=== PATIENT | female | born 1930 | race Caucasian/White ===

== ENCOUNTER 2017-03-19 12:59 | Emergency (ER) | payer OTHER ==
[~2017-03-19 12:59] MED LIST: ASPIRIN EC325 MG PO; ATACAND8 MG PO; ATORVASTATIN CA20 MG PO; BECLOMETHASONE; COLACE100 MG PO; DONEPEZIL HCL10 M1 PO; DULCOLAX10 MG PR; ENALAPRIL MALEA10 MG PO; EQL OMEPRAZOLE20 MG PO; HYDREA500 MG PO; LEVAQUIN250 MG PO; METOPROLOL SUCC50 MG PO; NITROSTAT0.4 MG SL; OXYCODONE/ACETA1 TA1 PO; PRILOSEC20 MG PO; SENNA-LAX8.6 MG PO; VICODIN EQUIVAL1 TAB PO; VITAMIN B 650 MG PO; VITAMIN B COMPLE1 PO; VITAMIN C500 M1 PO; VITAMIN D-32000 UNIT PO; XARELTO10 MG PO
--- NOTE | 2017-03-19 16:20 | ED NURSING NOTES ---
Clinical Report - Nurses [facility] [address] [place] [address] 03/19/2017 13:02 Patient: SUSANA MURRY TRIAGE Triage time 1302 PM. Acuity: LEVEL 3. Chief Complaint: CHILLS (confusion). Alert. No acute distress. FERDINAND COMA SCORE: [place] Coma Scale: 15- eyes open spontaneously (4); best verbal response- oriented x 4 (5); best motor response- obeys commands (6). --13:28 Dana Hernandez R.N. 13:13 03/19/17. BP: 157/71 taken on the left arm, via an automated monitor, while lying. HR: 68. RR: 16. O2 saturation: 99%. Temp: 98 F (oral). Pain level now: 0/10. --13:28 Dana Hernandez R.N. Weight: 74.8 kg measured. Height/Length: 68 inches Per Patient. BMI: 25.1. --13:16 Dana Hernandez R.N. Medications Atorvastatin Calcium Oral 20 mg, daily. Enalapril Maleate Oral 10 mg, daily. Hydroxyurea Oral 500 mg 3x per week. Metoprolol Succinate ER Oral 50 mg BID. --13:15 Dana Hernandez R.N. Nitrostat Sublingual 0.4 mg, as needed. Omeprazole Oral 20 mg, daily. Vitamin D Oral (Capsule 2000 unit) 1 capsule, daily. --13:15 Dana Hernandez R.N. Aspirin Oral. --13:15 Dana Hernandez R.N. Medication/allergy information source: the patient and patient's family. --13:28 Dana Hernandez R.N. Allergies No Known Drug Allergy. --13:13 Dana Hernandez R.N. History Arrived by private vehicle. Historian: family. Accompanied by family. Primary physician (Dr. Pisano). ( Pt is here to get further evaluation for confusion, and possibly UTI, daughter states took her to her primary doctor on Saturday due to noticing mom being confused, SOB, swelling b/l. Daughter is concern about mom's mental state in general). This is a new problem. Symptoms are constant and still present (2-3 weeks). She has had fever and weakness. No cough, difficulty breathing or skin rash. Denies muscle aches. 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 PAST MEDICAL HX: Immunizations: up-to-date. The patient is post-menopausal. SOCIAL HX: Never smoker. Alcohol use; consumes wine by the glass. (1 week). No drug use. No infectious disease exposure. ABUSE ASSESSMENT: No report of abuse. SELF HARM ASSESSMENT: A self harm assessment was performed. The patient answered "no" to the question "Do you have thoughts of harming or killing yourself?" and "Have you recently had thoughts about harming or killing others?". FALL RISK ASSESSMENT: Fall risk assessment completed. No fall risk identified. NUTRITIONAL RISK ASSESSMENT: The nutritional risk assessment revealed no deficiencies. FUNCTIONAL ASSESSMENT: Functional assessment: no impairments noted. LEARNING NEEDS ASSESSMENT: The learning needs assessment revealed no barriers. SKIN INTEGRITY ASSESSMENT: Skin integrity risk assessment completed. No skin integrity risk identified. --13:28 Dana Hernandez R.N. PROBLEMS: Contusion. Fall. Pelvic Fracture. TIA's with speech problems. Coronary Artery Disease. Hypovolemia. Leukocytosis. Dyspnea. UTI - Urinary Tract Infection. Primary (Essential) Thrombocytosis. Bleeding Disorder. Myocardial Infarction. Heart Disease. Vertigo. Immunizations. Angina. Atrial Fibrillation. Insomnia. Hypertension. Anxiety Reaction. Syncope. Epistaxis. Thrombocytosis. --13:16 Dana Hernandez R.N. ADDITIONAL SURGERIES: Cardiac Procedures. Cardiac stents. Coronary Angioplasty. Hysterectomy. Left arm. Right foot fracture repair . --13:16 Dana Hernandez R.N. Interventions ID band on patient. --13:28 Dana Hernandez R.N. PHYSICAL ASSESSMENT To room via wheelchair. GENERAL / NEURO / PSYCH: Alert. Oriented X 4. The patient is disoriented to person and place. She has had weakness. HEENT: Pupils equal, round and reactive to light. No facial asymmetry noted. Mucous membranes are pink. RESPIRATORY: Respirations not labored. Chest nontender. Breath sounds within normal limits. CVS: Capillary refill less than 2 seconds. Pulses within normal limits. GI / : Abdomen soft and nontender and normal bowel sounds. EXTREMITIES: Bilateral 2+ non-pitting edema of the lower extremities. SKIN: Skin is warm and dry. Well-demarcated, macular, raised skin rash located on the face (nose and lips noted). Poor skin turgor. --13:31 Dana Hernandez R.N. NURSING PROGRESS NOTES Cardiac rhythm: normal sinus rhythm. The initial plan of care for this patient has been created This plan of care was discussed with the patient and family. Monitoring of patient in place. Reassurance given. Two patient identifiers checked. Call light placed in reach. Side rails up x 1. Bed placed in lowest position. --13:33 Dana Hernandez R.N. 13:31 03/19/17. BP: 150/62 (regular adult cuff) taken on the left arm, via an automated monitor, while lying. HR: 71. RR: 16. O2 saturation: 97% on room air. Pain level now: 0/10. --13:33 Dana Hernandez R.N. EKG time: (1343). EKG was ordered, performed by a lynnette and shown to the ED physician. --13:45 Jose David Schroeder ER Tech1 13:15 03/19/2017 Site #1 started via IV in the right forearm with an 20g angiocath; one attempt. Blood drawn: rainbow set. Labeled in the presence of the patient and sent to the lab. --13:59 Dana Hernandez R.N. 13:59 03/19/2017 Started bag #1 500 mL IV Fluids IV NS (Saline); at 500 mL/hr over 1 hour(s) via site #1 via IV pump. Allergies verified and confirmed 5 rights. IV patency established. IV site checked: no pain, redness, or swelling. IV flushed thoroughly pre- and post-medication administration. --13:59 Dana Hernandez R.N. Finger stick glucose: 131 mg/dL; performed by nurse; result shown to the ED physician. --14:00 Ephraim Tracy R.N. Cardiac rhythm: normal sinus rhythm. educator senior clinical, pulse oximeter and NIBP monitor placed on patient. Patient ID band checked for patient name, birthdate and medical record number: family confirmed. Catheterized urine collected with return of yellow-colored clear urine; sample sent to lab for urinalysis. Specimen labeled in the presence of the patient. The patient is calm and resting quietly. GENERAL / NEURO / PSYCH: Denies headache or anxiety. RESPIRATORY: Denies difficulty breathing. CVS: Denies chest pain. GI / : Denies nausea. Call light placed in reach. --14:16 Dana Hernandez R.N. 14:00 03/19/17. BP: 127/54 (regular adult cuff) taken on the left arm, via an automated monitor, while lying. HR: 66. RR: 19. O2 saturation: 96% on room air. Pain level now: 0/10. --14:16 Dana Hernandez R.N. 15:50 03/19/2017 Site #1; patent, infusing well and no signs of infection or infiltration. --15:50 Dana Hernandez R.N. Cardiac rhythm: normal sinus rhythm. educator senior clinical, pulse oximeter and NIBP monitor placed on patient. Reassurance given. Reassessment after fluids administered. She is calm and resting quietly. Overall patient status is the same- she states feels the same. Call light placed in reach. Side rails up. --15:50 Dana Hernandez R.N. 15:00 03/19/17. BP: 144/72. HR: 81. RR: 22. O2 saturation: 96% on room air. Temp: 98.1 F (oral). Pain level now: 0/10. --15:50 Dana Hernandez R.N. late entry - 14:00. Cardiac rhythm: normal sinus rhythm. educator senior clinical, pulse oximeter and NIBP monitor placed on patient. The patient is calm and resting quietly. Overall patient status is the same- she states feels the same. GENERAL / NEURO / PSYCH: Denies headache or anxiety. RESPIRATORY: Denies difficulty breathing. CVS: Denies chest pain. Normal sinus rhythm noted. GI / : Denies nausea. SKIN: Skin is warm and dry. Skin color within normal limits. Call light placed in reach. Side rails up x 1. Bed placed in lowest position. Brakes of bed on. --15:51 Dana Hernandez R.N. 14:00 03/19/17. BP: 127/54 (regular adult cuff) taken on the left arm, via an automated monitor, while lying. HR: 71. RR: 19. O2 saturation: 98% on room air. Pain level now: 0/10. --15:51 Dana Hernandez R.N. ( Discharge planning at bedside, discussing options with family). --15:52 Dana Hernandez R.N. ( Care set up thru social services manager at the [facility]). --17:05 Dana Hernandez R.N. DISPOSITION / DISCHARGE 14:30 03/19/2017 IV Fluids IV NS via IV site #1 Rate Changed: bag #1 decreased to 500 mL/hr via IV pump. IV patency established. IV site checked: no pain, redness, or swelling. IV flushed thoroughly. Confirmed 5 Rights. --17:02 Dana Hernandez R.N. 16:53 03/19/2017 IV Fluids IV NS Discontinued: bag #1 completed upon discharge. Total amount infused: 1000 mL. IV patency established. IV site checked: no pain, redness, or swelling. IV flushed thoroughly. --17:03 Dana Hernandez R.N. 16:57 03/19/2017 Site #1 removed upon discharge. Catheter intact. Manual pressure, pressure dressing, bandaid and bandage applied. --17:02 Dana Hernandez R.N. Cardiac rhythm: normal sinus rhythm. Departure time: 1704 PM. Condition at departure: unchanged and stable. The goals identified in the patient's plan of care were met. No learning barriers present. Ability to learn limited by poor comprehension and dementia; teaching performed with the family. Discharge instructions provided and reviewed with the family. Patient verbalized understanding. Written instructions provided in Nauruan. No warning instructions, medication instructions, treatment instructions, referrals given to the patient or activity restrictions. No note given. The patient was discharged by the physician. She was discharged to the retirement and accompanied by family. She left the Emergency Department ambulatory and via private vehicle. Family member driving. FALL RISK ASSESSMENT: Fall risk assessment completed. No fall risk identified. FERDINAND COMA SCORE: [place] Coma Scale: 4- eyes open spontaneously (4). --17:04 Dana Hernandez R.N. 17:00 03/19/17. BP: 161/75. HR: 70. RR: 15. O2 saturation: 98% on room air. Temp: 98.2 F (oral). Pain level now: 0/10. --17:04 Dana Hernandez R.N. Locked/Released at 03/19/2017 17:05 by Dana Hernandez R.N.
--- NOTE | 2017-03-19 16:20 | ED ORDER SUMMARY ---
..... Patient: SUSANA MURRY OrderSheet [facility] VisitID: [id number] [place] [address] 86y, F Registration Date/Time: 03/19/2017 ORDER SHEET Weight: 74.8 kg (measured) Allergies: No Known Drug Allergy GENERAL ORDERS: Banjo Repairer (Continuous) (13:03/19/2017 [facility]) (Ack 13:31 LNations ER Tech1) (13:32 EHassan R.N.) UA-Culture if indicated Urgent (13:03/19/2017 [facility]) (Ack 13:31 LNations ER Tech1) (13:51 EHassan R.N.) Cardiac Panel Stat (13:03/19/2017 [facility]) (Ack 13:32 LNations ER Tech1) (13:32 EHassan R.N.) BNP Urgent (13:03/19/2017 [facility]) (Ack 13:32 LNations ER Tech1) (13:32 EHassan R.N.) Amylase Urgent (13:03/19/2017 [facility]) (Ack 13:32 LNations ER Tech1) (13:33 EHassan R.N.) PT with INR Urgent (13:03/19/2017 [facility]) (Ack 13:32 LNations ER Tech1) (13:33 EHassan R.N.) TSH Urgent (13:03/19/2017 [facility]) (Ack 13:32 LNations ER Tech1) (13:33 EHassan R.N.) Urine Drug Screen Urgent (13:03/19/2017 [facility]) (Ack 13:32 LNations ER Tech1) (Collected 13:33 EHassan R.N.) (Sent 13:33 EHassan R.N.) (13:51 EHassan R.N.) Pulse oximeter (13:03/19/2017 [facility]) (Ack 13:31 LNations ER Tech1) (13:32 EHassan R.N.) EKG - ER Stat (13:29 03/19/2017 [facility]) (Ack 13:31 LNations ER Tech1) (13:43 PWeiler ER Tech1) Vitals (13:29 03/19/2017 [facility]) (Ack 13:31 LNations ER Tech1) (13:32 EHassan R.N.) POC Glucose (13:29 03/19/2017 [facility]) (Ack 13:31 LNations ER Tech1) (13:58 EHassan R.N.) Old Records (from [facility]) (13:43 03/19/2017 [facility]) (Ack 13:49 LNations ER Tech1) (13:52 LNations ER Tech1) Consult - Layboy Operator (d/c conservation planner) (14:29 03/19/2017 [facility]) (14:46 LNations ER Tech1) MEDICATION ORDERS: IV FLUIDS: IV NS : initial bolus 500 mL (1000 mL/hr), then 250 mL/hr for X2 (NOW) (13:29 03/19/2017 [facility]) (13:59 EHassan R.N.) ORDER SHEET NOTES: [Electronically signed by Dana Hernandez R.N. (17:05 03/19/2017)] [Electronically signed by Jose David Del Cid DO (23:13 03/19/2017)] [Electronically locked/signed by Dana Hernandez R.N. (17:05 03/19/2017)]
--- NOTE | 2017-03-19 16:20 | ED NURSING NOTES ---
Clinical Report - Nurses [facility] [address] [place] [address] 03/19/2017 13:02 Patient: SUSANA MURRY TRIAGE Triage time 1302 PM. Acuity: LEVEL 3. Chief Complaint: CHILLS (confusion). Alert. No acute distress. FERDINAND COMA SCORE: [place] Coma Scale: 15- eyes open spontaneously (4); best verbal response- oriented x 4 (5); best motor response- obeys commands (6). --13:28 Dana Hernandez R.N. 13:13 03/19/17. BP: 157/71 taken on the left arm, via an automated monitor, while lying. HR: 68. RR: 16. O2 saturation: 99%. Temp: 98 F (oral). Pain level now: 0/10. --13:28 Dana Hernandez R.N. Weight: 74.8 kg measured. Height/Length: 68 inches Per Patient. BMI: 25.1. --13:16 Dana Hernandez R.N. Medications Atorvastatin Calcium Oral 20 mg, daily. Enalapril Maleate Oral 10 mg, daily. Hydroxyurea Oral 500 mg 3x per week. Metoprolol Succinate ER Oral 50 mg BID. --13:15 Dana Hernandez R.N. Nitrostat Sublingual 0.4 mg, as needed. Omeprazole Oral 20 mg, daily. Vitamin D Oral (Capsule 2000 unit) 1 capsule, daily. --13:15 Dana Hernandez R.N. Aspirin Oral. --13:15 Dana Hernandez R.N. Medication/allergy information source: the patient and patient's family. --13:28 Dana Hernandez R.N. Allergies No Known Drug Allergy. --13:13 Dana Hernandez R.N. History Arrived by private vehicle. Historian: family. Accompanied by family. Primary physician (Dr. Pisano). ( Pt is here to get further evaluation for confusion, and possibly UTI, daughter states took her to her primary doctor on Saturday due to noticing mom being confused, SOB, swelling b/l. Daughter is concern about mom's mental state in general). This is a new problem. Symptoms are constant and still present (2-3 weeks). She has had fever and weakness. No cough, difficulty breathing or skin rash. Denies muscle aches. 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 PAST MEDICAL HX: Immunizations: up-to-date. The patient is post-menopausal. SOCIAL HX: Never smoker. Alcohol use; consumes wine by the glass. (1 week). No drug use. No infectious disease exposure. ABUSE ASSESSMENT: No report of abuse. SELF HARM ASSESSMENT: A self harm assessment was performed. The patient answered "no" to the question "Do you have thoughts of harming or killing yourself?" and "Have you recently had thoughts about harming or killing others?". FALL RISK ASSESSMENT: Fall risk assessment completed. No fall risk identified. NUTRITIONAL RISK ASSESSMENT: The nutritional risk assessment revealed no deficiencies. FUNCTIONAL ASSESSMENT: Functional assessment: no impairments noted. LEARNING NEEDS ASSESSMENT: The learning needs assessment revealed no barriers. SKIN INTEGRITY ASSESSMENT: Skin integrity risk assessment completed. No skin integrity risk identified. --13:28 Dana Hernandez R.N. PROBLEMS: Contusion. Fall. Pelvic Fracture. TIA's with speech problems. Coronary Artery Disease. Hypovolemia. Leukocytosis. Dyspnea. UTI - Urinary Tract Infection. Primary (Essential) Thrombocytosis. Bleeding Disorder. Myocardial Infarction. Heart Disease. Vertigo. Immunizations. Angina. Atrial Fibrillation. Insomnia. Hypertension. Anxiety Reaction. Syncope. Epistaxis. Thrombocytosis. --13:16 Dana Hernandez R.N. ADDITIONAL SURGERIES: Cardiac Procedures. Cardiac stents. Coronary Angioplasty. Hysterectomy. Left arm. Right foot fracture repair . --13:16 Dana Hernandez R.N. Interventions ID band on patient. --13:28 Dana Hernandez R.N. PHYSICAL ASSESSMENT To room via wheelchair. GENERAL / NEURO / PSYCH: Alert. Oriented X 4. The patient is disoriented to person and place. She has had weakness. HEENT: Pupils equal, round and reactive to light. No facial asymmetry noted. Mucous membranes are pink. RESPIRATORY: Respirations not labored. Chest nontender. Breath sounds within normal limits. CVS: Capillary refill less than 2 seconds. Pulses within normal limits. GI / : Abdomen soft and nontender and normal bowel sounds. EXTREMITIES: Bilateral 2+ non-pitting edema of the lower extremities. SKIN: Skin is warm and dry. Well-demarcated, macular, raised skin rash located on the face (nose and lips noted). Poor skin turgor. --13:31 Dana Hernandez R.N. NURSING PROGRESS NOTES Cardiac rhythm: normal sinus rhythm. The initial plan of care for this patient has been created This plan of care was discussed with the patient and family. Monitoring of patient in place. Reassurance given. Two patient identifiers checked. Call light placed in reach. Side rails up x 1. Bed placed in lowest position. --13:33 Dana Hernandez R.N. 13:31 03/19/17. BP: 150/62 (regular adult cuff) taken on the left arm, via an automated monitor, while lying. HR: 71. RR: 16. O2 saturation: 97% on room air. Pain level now: 0/10. --13:33 Dana Hernandez R.N. EKG time: (1343). EKG was ordered, performed by a lynnette and shown to the ED physician. --13:45 Jose David Schroeder ER Tech1 13:15 03/19/2017 Site #1 started via IV in the right forearm with an 20g angiocath; one attempt. Blood drawn: rainbow set. Labeled in the presence of the patient and sent to the lab. --13:59 Dana Hernandez R.N. 13:59 03/19/2017 Started bag #1 500 mL IV Fluids IV NS (Saline); at 500 mL/hr over 1 hour(s) via site #1 via IV pump. Allergies verified and confirmed 5 rights. IV patency established. IV site checked: no pain, redness, or swelling. IV flushed thoroughly pre- and post-medication administration. --13:59 Dana Hernandez R.N. Finger stick glucose: 131 mg/dL; performed by nurse; result shown to the ED physician. --14:00 Ephraim Tracy R.N. Cardiac rhythm: normal sinus rhythm. clamp operator, pulse oximeter and NIBP monitor placed on patient. Patient ID band checked for patient name, birthdate and medical record number: family confirmed. Catheterized urine collected with return of yellow-colored clear urine; sample sent to lab for urinalysis. Specimen labeled in the presence of the patient. The patient is calm and resting quietly. GENERAL / NEURO / PSYCH: Denies headache or anxiety. RESPIRATORY: Denies difficulty breathing. CVS: Denies chest pain. GI / : Denies nausea. Call light placed in reach. --14:16 Dana Hernandez R.N. 14:00 03/19/17. BP: 127/54 (regular adult cuff) taken on the left arm, via an automated monitor, while lying. HR: 66. RR: 19. O2 saturation: 96% on room air. Pain level now: 0/10. --14:16 Dana Hernandez R.N. 15:50 03/19/2017 Site #1; patent, infusing well and no signs of infection or infiltration. --15:50 Dana Hernandez R.N. Cardiac rhythm: normal sinus rhythm. clamp operator, pulse oximeter and NIBP monitor placed on patient. Reassurance given. Reassessment after fluids administered. She is calm and resting quietly. Overall patient status is the same- she states feels the same. Call light placed in reach. Side rails up. --15:50 Dana Hernandez R.N. 15:00 03/19/17. BP: 144/72. HR: 81. RR: 22. O2 saturation: 96% on room air. Temp: 98.1 F (oral). Pain level now: 0/10. --15:50 Dana Hernandez R.N. late entry - 14:00. Cardiac rhythm: normal sinus rhythm. clamp operator, pulse oximeter and NIBP monitor placed on patient. The patient is calm and resting quietly. Overall patient status is the same- she states feels the same. GENERAL / NEURO / PSYCH: Denies headache or anxiety. RESPIRATORY: Denies difficulty breathing. CVS: Denies chest pain. Normal sinus rhythm noted. GI / : Denies nausea. SKIN: Skin is warm and dry. Skin color within normal limits. Call light placed in reach. Side rails up x 1. Bed placed in lowest position. Brakes of bed on. --15:51 Dana Hernandez R.N. 14:00 03/19/17. BP: 127/54 (regular adult cuff) taken on the left arm, via an automated monitor, while lying. HR: 71. RR: 19. O2 saturation: 98% on room air. Pain level now: 0/10. --15:51 Dana Hernandez R.N. ( Discharge planning at bedside, discussing options with family). --15:52 Dana Hernandez R.N. ( Care set up thru social insurance adviser at the [facility]). --17:05 Dana Hernandez R.N. DISPOSITION / DISCHARGE 14:30 03/19/2017 IV Fluids IV NS via IV site #1 Rate Changed: bag #1 decreased to 500 mL/hr via IV pump. IV patency established. IV site checked: no pain, redness, or swelling. IV flushed thoroughly. Confirmed 5 Rights. --17:02 Dana Hernandez R.N. 16:53 03/19/2017 IV Fluids IV NS Discontinued: bag #1 completed upon discharge. Total amount infused: 1000 mL. IV patency established. IV site checked: no pain, redness, or swelling. IV flushed thoroughly. --17:03 Dana Hernandez R.N. 16:57 03/19/2017 Site #1 removed upon discharge. Catheter intact. Manual pressure, pressure dressing, bandaid and bandage applied. --17:02 Dana Hernandez R.N. Cardiac rhythm: normal sinus rhythm. Departure time: 1704 PM. Condition at departure: unchanged and stable. The goals identified in the patient's plan of care were met. No learning barriers present. Ability to learn limited by poor comprehension and dementia; teaching performed with the family. Discharge instructions provided and reviewed with the family. Patient verbalized understanding. Written instructions provided in Bruneian. No warning instructions, medication instructions, treatment instructions, referrals given to the patient or activity restrictions. No note given. The patient was discharged by the physician. She was discharged to the [facility] and accompanied by family. She left the Emergency Department ambulatory and via private vehicle. Family member driving. FALL RISK ASSESSMENT: Fall risk assessment completed. No fall risk identified. FERDINAND COMA SCORE: [place] Coma Scale: 4- eyes open spontaneously (4). --17:04 Dana Hernandez R.N. 17:00 03/19/17. BP: 161/75. HR: 70. RR: 15. O2 saturation: 98% on room air. Temp: 98.2 F (oral). Pain level now: 0/10. --17:04 Dana Hernandez R.N. Locked/Released at 03/19/2017 17:05 by Dana Hernandez R.N.
--- NOTE | 2017-03-19 16:20 | ED ORDER SUMMARY ---
..... Patient: SUSANA MURRY [facility] VisitID: [id number] [place] [address] 86y, F Registration Date/Time: 03/19/2017 ORDER SHEET Weight: 74.8 kg (measured) Allergies: No Known Drug Allergy GENERAL ORDERS: Toe Sewer (Continuous) (13:03/19/2017 [facility]) (Ack 13:31 LNations ER Tech1) (13:32 EHassan R.N.) UA-Culture if indicated Urgent (13:03/19/2017 [facility]) (Ack 13:31 LNations ER Tech1) (13:51 EHassan R.N.) Cardiac Panel Stat (13:03/19/2017 [facility]) (Ack 13:32 LNations ER Tech1) (13:32 EHassan R.N.) BNP Urgent (13:03/19/2017 [facility]) (Ack 13:32 LNations ER Tech1) (13:32 EHassan R.N.) Amylase Urgent (13:03/19/2017 [facility]) (Ack 13:32 LNations ER Tech1) (13:33 EHassan R.N.) PT with INR Urgent (13:03/19/2017 [facility]) (Ack 13:32 LNations ER Tech1) (13:33 EHassan R.N.) TSH Urgent (13:03/19/2017 [facility]) (Ack 13:32 LNations ER Tech1) (13:33 EHassan R.N.) Urine Drug Screen Urgent (13:03/19/2017 [facility]) (Ack 13:32 LNations ER Tech1) (Collected 13:33 EHassan R.N.) (Sent 13:33 EHassan R.N.) (13:51 EHassan R.N.) Pulse oximeter (13:03/19/2017 [facility]) (Ack 13:31 LNations ER Tech1) (13:32 EHassan R.N.) EKG - ER Stat (13:29 03/19/2017 [facility]) (Ack 13:31 LNations ER Tech1) (13:43 PWeiler ER Tech1) Vitals (13:29 03/19/2017 [facility]) (Ack 13:31 LNations ER Tech1) (13:32 EHassan R.N.) POC Glucose (13:29 03/19/2017 [facility]) (Ack 13:31 LNations ER Tech1) (13:58 EHassan R.N.) Old Records (from [facility]) (13:43 03/19/2017 [facility]) (Ack 13:49 LNations ER Tech1) (13:52 LNations ER Tech1) Consult - Custodial Manager (d/c party planner) (14:29 03/19/2017 [facility]) (14:46 LNations ER Tech1) MEDICATION ORDERS: IV FLUIDS: IV NS : initial bolus 500 mL (1000 mL/hr), then 250 mL/hr for X2 (NOW) (13:29 03/19/2017 [facility]) (13:59 EHassan R.N.) ORDER SHEET NOTES: [Electronically signed by Dana Hernandez R.N. (17:05 03/19/2017)] [Electronically signed by Jose David Del Cid DO (23:13 03/19/2017)] [Electronically locked/signed by Dana Hernandez R.N. (17:05 03/19/2017)]
--- NOTE | 2017-03-19 16:20 | ED CLINICAL REPORT ---
Clinical Report - Physicians/Mid Levels [facility] [address] [place] [address] 03/19/2017 13:02 Patient: SUSANA MURRY Time Seen: 13:27. Arrived- By private vehicle. Historian- patient and family. History limited by dementia. HISTORY OF PRESENT ILLNESS Chief Complaint: DECREASED MENTAL STATUS. Weaknes. The patient is described as having decreased responsiveness. This started about 2 - 3 weeks ago and is still present. It was gradual in onset and has been waxing/waning. No alcohol recently or recent drug use. The patient has had generalized weakness. She has had moderate difficulty walking. It has been associated with weakness in both legs. Usually has normal mobility. Is not usually alert and oriented X3. Similar symptoms previously: Recent medical care: The patient was seen recently in a clinic. REVIEW OF SYSTEMS No fever, headache, dizziness, chest pain or difficulty breathing. No cough, blurred vision, abdominal pain, nausea or diarrhea. No black stools, difficulty with urination, skin rash or bloody stools. All systems otherwise negative, except as recorded above. PAST HISTORY ( PCP: Dr. Pisano Alzheimer's Dementia ("late onset") - per neurology consult (Dr Jose David Turpin MD on 11/22/2016) Coronary Artery Disease. Hypovolemia. Leukocytosis. Dyspnea. UTI - Urinary Tract Infection. Urinary Incontinence Primary (Essential) Thrombocytosis. Bleeding Disorder. Myocardial Infarction. Vertigo. Angina. Platelet disorder . Atrial Fibrillation - Paroxysmal. Insomnia. Anxiety Reaction. Syncope. Epistaxis. Hypertension Thrombocytosis. TIA's with speech problems. 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 Cardiac stents. Coronary Angioplasty with stent. Hysterectomy with BSO. Left arm. Right foot fracture repair Skin cancer (basal and squamous) Colonoscopy). Medications: Aspirin Oral. Nitrostat Sublingual 0.4 mg, as needed. Omeprazole Oral 20 mg, daily. Vitamin D Oral (Capsule 2000 unit) 1 capsule, daily. Atorvastatin Calcium Oral 20 mg, daily. Enalapril Maleate Oral 10 mg, daily. Hydroxyurea Oral 500 mg 3x per week. Metoprolol Succinate ER Oral 50 mg BID. Allergies: No Known Drug Allergy. SOCIAL HISTORY Never smoker. Occasional alcohol use. No drug use. Residence: [facility] - independent living Is a local resident. Marital status: . FAMILY HISTORY Other family history (Daughter and Sister with malignant melenoma; Mother with esophageal cancer; Half sister with stroke;Brother with Alzheimer's). ADDITIONAL NOTES The nursing notes have been reviewed. PHYSICAL EXAM Vital Signs: 03/19/2017 13:13 BP: 157/71. HR: 68. RR: 16. O2 saturation: 99%. Temp: 98 F. Pain level now: 0/10. Appearance: Alert. No acute distress. Head: Head atraumatic. Eyes: Pupils equal, round and reactive to light. ENT: Normal ENT inspection. Airway intact. Mildly dry mucous membranes present. Pharynx normal. Neck: Normal inspection. Neck supple. CVS: Normal heart rate and rhythm. Pulses normal. Respiratory: No respiratory distress. Breath sounds normal. Abdomen: Nontender. No organomegaly. Back: Normal inspection. Skin: Skin warm and dry. Normal skin color. Extremities: Bilateral mild edema of the lower extremities. Extremities exhibit normal ROM. No calf tenderness. Neuro: Alert. The patient is disoriented. Mood/affect normal. Speech normal. Cranial nerves normal (as tested). No motor deficit. No sensory deficit. Reflexes normal. LABS, X-RAYS, AND EKG EKG: EKG time: (13:43). Normal sinus rhythm. Rate: 70. Normal NICKI. First-degree atrioventricular block. LVH. Non-specific ST segment / T wave abnormalities. EKG unchanged when compared with prior EKG. (not significantly changed from [id number]). The study has been interpreted contemporaneously by me. The EKG appears to be a good tracing. Rhythm Strip #1: Normal sinus rhythm. Regular rhythm. Narrow QRS complexes. No ectopy. Laboratory Tests: UA-Culture if indicated: (SARIKA: 03/19/2017 13:50) ( MsgRcvd 03/19/2017 14:27) Final results Test Result Flag Units (Reference) URINE COLOR YELLOW URINE APPEARANCE CLEAR URINE GLUCOSE NEGATIVE (NEGATIVE) URINE BILIRUBIN NEGATIVE (NEGATIVE) URINE KETONE NEGATIVE (NEGATIVE) URINE SPECIFIC GRAVITY 1.020 (1.010-1.030) URINE PH 6.0 (5.0-8.0) URINE PROTEIN 1+ (NEGATIVE) URINE UROBILINOGEN 2.0 EU/dL (0.2-1.0) The urobilinogen reagent area may react with interferingsubstances known to react with Fernando's reagent such asp-aminosalicylic acid and sulfonamides. Atypical colorreactions may be obtained in the presence of highconcentrations of p-aminobenzoic acid. The absence ofurobilinogen cannot be determined with this test. URINE NITRITE NEGATIVE (NEGATIVE) URINE BLOOD 2+ (NEGATIVE) URINE LEUK ESTERASE NEGATIVE (NEGATIVE) URINE RBC 5-10 rbc/hpf (0-1) URINE WBC 3-5 wbc/hpf (0-1) URINE EPITHELIAL CELLS 0-1 EPI/hpf (0-5) URINE BACTERIA TRACE (<1+) (NONE SEEN) URINE COMMENT CULT NOT INDICATED URINE CULTURES ARE SET-UP BASED ON THE FOLLOWING CRITERIA:POSITIVE NITRITEPOSITIVE LEUKOCYTE ESTERASEGREATER THAN 10 WHITE BLOOD CELLSMODERATE (2+) OR GREATER BACTERIA CBC w Diff: (SARIKA: 03/19/2017 13:15) ( MsgRcvd 03/19/2017 14:00) Final results Test Result Flag Units (Reference) WHITE BLOOD COUNT 13.2 H K/uL (4.5-11.5) RED BLOOD COUNT 4.94 M/uL (4.00-5.20) HEMOGLOBIN 14.9 gm/dL (12.0-16.0) HEMATOCRIT 45.4 % (36.0-46.0) MEAN CELL VOLUME 92 fL (80-100) MEAN CORPUSCULAR HGB 30 pg (26-34) MEAN CORPUSCULAR HGB CONC 33 g/dL (31-37) RED CELL DISTRIBUTION WIDTH 14.4 % (11.6-14.8) PLATELET COUNT 960 H K/uL (150-400) NEUTROPHIL % 85.9 H % (50-75) LYMPH % 7.8 L % (25-40) MONO % 5.0 % (3-14) EOSINOPHIL % 1.0 % (0-4) BASOPHIL % 0.3 % (0-2) PT with INR: (SARIKA: 03/19/2017 13:15) ( [facility] 03/19/2017 13:49) Final results Test Result Flag Units (Reference) INR 1.1 (0.8-1.2) Low Intensity Therapy: INR 1.5-2.0 PT range 18.5-23.1Mod.Intensity Therapy: INR 2.0-3.0 PT range 23.1-31.5High Intensity Therapy: INR 2.5-3.5 PT range 27.4-35.5High Intensity Therapy 2: INR 3.0-4.0 PT range 31.5-39.3 Urine Drug Screen: (SARIKA: 03/19/2017 13:50) ( [facility] 03/19/2017 14:32) Final results Test Result Flag Units (Reference) AMPHETAMINE/METHAMPHETAMINE NEGATIVE (NEGATIVE) BARBITURATE NEGATIVE (NEGATIVE) BENZODIAZEPINE NEGATIVE (NEGATIVE) CANNABINOID NEGATIVE (NEGATIVE) COCAINE NEGATIVE (NEGATIVE) ECSTASY NEGATIVE (NEGATIVE) METHADONE NEGATIVE (NEGATIVE) OPIATE NEGATIVE (NEGATIVE) The urine drug screen is a qualitative screening test fordrug overdose and abuse. All screen results should beconsidered as presumptive.Drugs screened for are as follows:BenzodiazepinesCocaineAmphetamines/MetamphetaminesTHC (Tetrahydrocannabinol)OpiatesBarbituratesEcstasyMethadonePositive results are unconfirmed. For confirmation, notifythe lab for the specimen to be sent to the reference lab.All confirmations must be performed by a differentmethodology.The ingestion of natural herbal and plant productscontaining Ephedra/Ephedra metabolites can produce in urineone or more substances capable of cross reacting withamphetamine/methamphetamine immunoassays. These testsprovide a preliminary result only. A more specificalternative chemical method must be used to obtain aconfirmed analytical result. BNP: (SARIKA: 03/19/2017 13:15) ( [facility] 03/19/2017 14:04) Final results Test Result Flag Units (Reference) B-TYPE NATRIURETIC PEPTIDE 79.5 pg/ml (5-100) CHEM 13 PANEL: (SARIKA: 03/19/2017 13:15) ( MsgRcvd 03/19/2017 14:43) Final results Test Result Flag Units (Reference) GLUCOSE 128 H mg/dL (70-110) BUN 17 mg/dL (7-18) CREATININE 0.9 mg/dL (0.6-1.3) Estimated GFR >60 mL/min Estimated GFR- >60 mL/min Note: Persistent reduction over 3 months in eGFR<60 mL/min/1.73 m2 defines CKD. Patients with eGFR values>=60 mL/min/1.73 m2 may also have CKD if evidence ofpersistent proteinuria. Additional information may be foundat www.kidney.org. SODIUM 142 mmol/L (136-145) POTASSIUM 4.0 mmol/L (3.5-5.1) CHLORIDE 105 mmol/L (98-107) CARBON DIOXIDE 27 mmol/L (21-32) CALCIUM 9.1 mg/dL (8.5-10.1) TOTAL PROTEIN 6.6 g/dL (6.4-8.2) ALBUMIN 3.5 g/dL (3.3-5.0) BILIRUBIN, TOTAL 0.5 mg/dL (0.0-1.0) ALKALINE PHOSPHATASE 73 U/L (46-116) AST (SGOT) 23 U/L (15-37) ALT (SGPT) 27 U/L (12-78) MAGNESIUM 2.2 mg/dL (1.8-2.4) AMYLASE 45 U/L (25-115) CPK 129 U/L (24-260) TROPONIN I 0.05 ng/mL (0.00-1.5) TROPONIN REFERENCE RANGE:<0.1 NEGATIVE0.1-1.5 INDETERMINANT>1.5 POSITIVE THYROID STIMULATING HORMONE 0.794 uIU/mL (0.30-3.74) . Pulse Oximetry: 03/19/2017 13:13 O2 saturation: 99%. (FIO2 - room air). Interpretation: normal. PROGRESS AND PROCEDURES Course of Care: Normal Saline 1 liter IVPB given. No indication for admission now. Pt is essentially asymptomatic during entire stay Pt assessed by d/c materials planner/production planner and pt will go to [facility] at a higher level of care - assisted living situation. Patient/family counseled. Old ED records reviewed. Transfer orders written. Disposition: Discharged (to assisted living at [facility]). Condition: stable. CLINICAL IMPRESSION Microscopic hematuria Acute generalized weakness. Essential thrombocythemia. INSTRUCTIONS Drink plenty of fluids. Warnings: Further evaluation is necessary. It is very important to follow up with a physician. GENERAL WARNINGS: Return or contact your physician immediately if your condition worsens or changes unexpectedly, if not improving as expected, or if other problems arise. Your Current Medications: CONTINUE TAKING THE FOLLOWING MEDICATIONS: Aspirin Oral. Atorvastatin Calcium Oral : 20 mg daily. Enalapril Maleate Oral : 10 mg daily. Hydroxyurea Oral : 500 mg 3x per week. Metoprolol Succinate ER Oral : 50 mg BID. Nitrostat Sublingual : 0.4 mg, prn. Omeprazole Oral : 20 mg daily. Vitamin D Oral : Capsule 2000 unit, 1 capsule daily. Follow-up: Follow up with your doctor tomorrow. (Electronically signed by Jose David Del Cid DO 03/19/2017 23:13)
--- NOTE | 2017-03-19 23:13 | ED MED RECONCILIATION SUMMARY ---
Patient: SUSANA MURRY Medication Reconciliation Report [facility] VisitID: [id number] [address] [place] [address] 86y, F Registration Date/Time: 03/19/2017 Weight: 74.8 kg Height/Length: 68 in. BMI: 25.1 ALLERGIES: No Known Drug Allergy The patient's Home Medications are listed below: CONTINUE TAKING THE FOLLOWING MEDICATIONS: Aspirin Oral Atorvastatin Calcium Oral 20 mg, daily Enalapril Maleate Oral 10 mg, daily Hydroxyurea Oral 500 mg 3x per week Metoprolol Succinate ER Oral 50 mg BID Nitrostat Sublingual 0.4 mg Omeprazole Oral 20 mg, daily Vitamin D Oral (2000 unit) 1 capsule, daily The source(s) of the original Home Medication information: patient patient's family member The following Medications were given to the patient in the Emergency Department: IV NS IV Fluids bolus 0, then 500 mL/hr, administered: 03/19/2017 1:59:00 PM The following Medications were prescribed to the patient: None.
--- NOTE | 2017-03-19 23:13 | ED MED RECONCILIATION SUMMARY ---
Patient: SUSANA MURRY Medication Reconciliation Report [facility] VisitID: [id number] [address] [place] [address] 86y, F Registration Date/Time: 03/19/2017 Weight: 74.8 kg Height/Length: 68 in. BMI: 25.1 ALLERGIES: No Known Drug Allergy The patient's Home Medications are listed below: CONTINUE TAKING THE FOLLOWING MEDICATIONS: Aspirin Oral Atorvastatin Calcium Oral 20 mg, daily Enalapril Maleate Oral 10 mg, daily Hydroxyurea Oral 500 mg 3x per week Metoprolol Succinate ER Oral 50 mg BID Nitrostat Sublingual 0.4 mg Omeprazole Oral 20 mg, daily Vitamin D Oral (2000 unit) 1 capsule, daily The source(s) of the original Home Medication information: patient patient's family member The following Medications were given to the patient in the Emergency Department: IV NS IV Fluids bolus 0, then 500 mL/hr, administered: 03/19/2017 1:59:00 PM The following Medications were prescribed to the patient: None.
--- NOTE | 2017-03-19 23:13 | ED MAR SUMMARY ---
..... Medication Administration Record [facility] [address] [place] [address] Patient: SUSANA MURRY Visit ID: [id number] 86y, F Weight: 74.8 kg Height/Length: 68 in BMI: 25.1 ALLERGIES: No Known Drug Allergy Start 13:59 03/19/2017 Dana Hernandez R.N., Stop 16:53 03/19/2017 Dana Hernandez R.N. Medication Administered: IV NS (SALINE), Dose: IV Fluids over 1 hour(s), Rate: 500 mL/hr, Dispensed: 500 mL bag, Site: #1 right forearm. Medication Ordered: IV NS : initial bolus 500 mL (1000 mL/hr), then 250 mL/hr for X2 (NOW).
--- NOTE | 2017-03-19 23:13 | ED DISCHARGE INSTRUCTIONS ---
Patient: SUSANA MURRY General Instructions [facility] VisitID: [id number] [place] [address] 86y, F Registration Date/Time: 03/19/2017 Microscopic hematuria Acute generalized weakness. Essential thrombocythemia. INSTRUCTIONS Drink plenty of fluids. Warnings: Further evaluation is necessary. It is very important to follow up with a physician. GENERAL WARNINGS: Return or contact your physician immediately if your condition worsens or changes unexpectedly, if not improving as expected, or if other problems arise. Your Current Medications: CONTINUE TAKING THE FOLLOWING MEDICATIONS: Aspirin Oral. Atorvastatin Calcium Oral : 20 mg daily. Enalapril Maleate Oral : 10 mg daily. Hydroxyurea Oral : 500 mg 3x per week. Metoprolol Succinate ER Oral : 50 mg BID. Nitrostat Sublingual : 0.4 mg, prn. Omeprazole Oral : 20 mg daily. Vitamin D Oral : Capsule 2000 unit, 1 capsule daily. Follow-up: Follow up with your doctor tomorrow. ADDITIONAL INFORMATION Blood In The Urine Blood in the urine ("hematuria") has many possible causes. If it occurs after an injury (such as a car accident or fall), it is most often a sign of bruising to the kidney or bladder. Common medical causes of blood in the urine include urinary tract infection, kidney stone, inflammation, tumors, or certain other diseases of the kidney or bladder. Menstruation can cause blood to appear in the urine sample, although it is not coming from the urinary tract. If only a trace amount of blood is present, it will show up on the urine test, even though the urine may be yellow and not pink or red. This may occur with any of the above conditions, as well as heavy exercise or high fever. In this case, your doctor may want to repeat the urine test on another day. This will show if the blood is still present. If so, then other tests can be done to find out the cause. Home Care: If your urine does not appear bloody (pink, brown or red) then you do not need to restrict your activity in any way. If you can see blood in your urine, rest and avoid heavy exertion until your next exam. Do not use aspirin or anti-inflammatory medicine like ibuprofen (Motrin, Advil) or naproxen (Naprosyn, Aleve). These thin the blood and may increase bleeding. Follow Up with your doctor or as advised by our staff. If you were injured and had blood in your urine, you should have a repeat urine test in 1-2 days. Contact your doctor or return to this facility for this test. [NOTE: A radiologist will review any X-rays that were taken. We will notify you of any new findings that may affect your care.] Get Prompt Medical Attention if any of the following occur: Bright red blood or blood clots in the urine (if a new symptom) Weakness, dizziness or fainting New groin, abdominal or back pain Fever of 100.4F (38C) or higher, or as directed by your healthcare provider Repeated vomiting Bleeding from nose, gums or easy bruising Weakness [Uncertain Cause] Based on your exam today, the exact cause of your weakness is not certain. However, your weakness does not seem to be a sign of a serious illness at this time. Sometimes the signs of a serious illness take more time to appear. Therefore, please watch for the warning signs listed below. Home Care: 1) Rest at home today. Do not over-exert yourself. 2) Take your medicine as prescribed. 3) For the next few days, drink extra fluids (unless your doctor wants you to restrict fluids for other reasons). Do not skip meals. Follow Up with your doctor or as advised if you are not starting to feel better within TWO days. Get Prompt Medical Attention if any of the following occur: Worsening of your symptoms Chest, arm, neck, jaw or upper back pain Dizziness or fainting Trouble breathing Unable to eat or drink normal amounts Nausea, frequent vomiting, frequent diarrhea Abdominal pain Numbness or weakness of the face, one arm or one leg Slurred speech, confusion, trouble speaking, walking or seeing Blood in vomit or stool (black or red color) Fever of 100.4 F (38 C) or higher, or as directed by your healthcare provider You have been given the following additional information: Hematuria Weakness, Unk Cause (Electronically signed by Jose David Del Cid DO 03/19/2017 23:13)
--- NOTE | 2017-03-19 23:13 | ED MAR SUMMARY ---
..... Medication Administration Record [facility] [address] [place] [address] Patient: SUSANA MURRY Visit ID: [id number] 86y, F Weight: 74.8 kg Height/Length: 68 in BMI: 25.1 ALLERGIES: No Known Drug Allergy Start 13:59 03/19/2017 Dana Hernandez R.N., Stop 16:53 03/19/2017 Dana Hernandez R.N. Medication Administered: IV NS (SALINE), Dose: IV Fluids over 1 hour(s), Rate: 500 mL/hr, Dispensed: 500 mL bag, Site: #1 right forearm. Medication Ordered: IV NS : initial bolus 500 mL (1000 mL/hr), then 250 mL/hr for X2 (NOW).
== END 2017-03-19 17:05 | disposition home or self-care (01) ==
LOC: ED SRH 12:59
DX: D47.3 Essential (hemorrhagic) thrombocythemia (principal); R31.29 Other microscopic hematuria; R53.1 Weakness; I10 Essential (primary) hypertension; K21.9 Gastro-esophageal reflux disease without esophagitis; Z79.899 Other long term (current) drug therapy; Z79.82 Long term (current) use of aspirin
CPT/HCPCS: 90004; 90098; 90100; 90616; 91320; 92530; 92610; 92720; 92760; 92761; 92762; 92763; 92764; 92765; 92766; 92767; 93140; 94060; 95059